=== PATIENT | male | born 1995 | race Hispanic/Latino ===

== ENCOUNTER 2016-08-10 19:32 | Emergency (ER) | payer OTHER, SELFPAY ==
[2016-08-10] MEDS ORDERED: Amoxicillin/Potassium Clav 875 MG TAB ONE (20:13)
[2016-08-10] MEDS ORDERED: Sodium Bicarbonate 2.4 MEQ/5 ML ONE (20:15)
== END 2016-08-10 20:45 | disposition home or self-care (01) ==
LOC: NAV ERS 19:32
DX: S61.211A Laceration without foreign body of left index finger without damage to nail, initial encounter (principal); W45.8XXA Other foreign body or object entering through skin, initial encounter
CPT/HCPCS: 12001